=== PATIENT | female | born 1975 | race Caucasian/White ===

== ENCOUNTER 2024-04-05 11:16 | Emergency (ER) | payer BC ==
[2024-04-05 11:38] VITALS: BP 124/99; PULSE 95
[2024-04-05] MEDS: Benzonatate 100 MG Cap PO ONE (11:48)
[2024-04-05] MEDS: methylPREDNISolone Sodium Succinate 40 MG/1 ML SDV IM ONE (11:48)
[2024-04-05] MEDS: Albuterol/Ipratropium 3.0-0.5 MG/3 ML Neb Soln NEB ONE (12:46)
[2024-04-05] MEDS: Azithromycin 250 MG Tab PO ONE (13:16)
[2024-04-05] MEDS: Take Home: Azithromycin 250 MG, 2 Tab Pack PO ONE (13:21)
[2024-04-05] MEDS: Take Home: Benzonatate 100 MG, 6 Cap Pack PO ONE (13:24)
== END 2024-04-05 13:27 | disposition home or self-care (01) ==
LOC: DL.ED 11:16
DX: R09.81 Nasal congestion (principal); R05.9 Cough, unspecified; Z90.49 Acquired absence of other specified parts of digestive tract
CPT/HCPCS: 71046; 96372; 99283; A9270-GY; J2919; J7620-GY